=== PATIENT | female | born 1965 | race Caucasian/White ===

== ENCOUNTER 2022-03-03 11:37 | Emergency (ER) | payer BC ==
[~2022-03-03] VITALS: Ht 165.1 cm; Wt 81.6 kg
[2022-03-03 11:52] VITALS: BP_SYST 178
--- NOTE | 2022-03-03 14:22 | NUR ---
MD RADER AT BEDSIDE FOR ASSESS.
[2022-03-03] MEDS ORDERED: NACL 0.9% 1,000 ML IV ONE (15:00)
[2022-03-03] MEDS ORDERED: KETOROLAC TROMETHAMINE 30 MG VIAL IVP ONE (15:00)
--- NOTE | 2022-03-03 16:58 | NUR ---
# 16 FR In and Out catheter with use of sterile technique. Immediate return of 150ml CLEAR YELLOW urine noted. Urine sample collected and sent to lab. Pt tolerated procedure WELL Patient unable to toilet self.
[2022-03-03 17:09] LABS: BILIRUBIN,URINE NEGATIVE (NEGATIVE); BLOOD, URINE 3+ (NEGATIVE); COLOR,URINE YELLOW (YELLOW); GLUCOSE,URINE NEGATIVE (NEGATIVE); KETONES,URINE NEGATIVE (NEGATIVE); LEUKOCYTE ESTERASE ,URINE 2+ (NEGATIVE); NITRITE, URINE NEGATIVE (NEGATIVE); PH,URINE 8.5 (5.0-8.0); PROTEIN URINE 2+ (NEGATIVE); UROBILINOGEN,URINE 0.2 (0.2-1.0)
[2022-03-03 17:16] LABS: BASOPHILS % (AUTO) 0.3 % (0.0-2.0); EOSINOPHILS # (AUTO) 0.1 K/uL (0.0-0.4); EOSINOPHILS % (AUTO) 0.4 % (0.0-4.0); HEMATOCRIT 43.9 % (36-48); HEMOGLOBIN 14.5 g/dL (12.0-16.0); LYMPHOCYTES # (AUTO) 1.5 K/uL (1.0-5.5); LYMPHOCYTES % (AUTO) 10.9 % (20.5-51.5); MEAN CORPUSCULAR HEMOGLOBIN 30 pg (27-31); MEAN CORPUSCULAR HGB CONC 33 % (32-36); MEAN CORPUSCULAR VOLUME 90 fL (79.0-98.0); MONOCYTES # (AUTO) 0.7 K/uL (0.0-1.0); MONOCYTES % (AUTO) 5.2 % (1.7-9.3); NEUTROPHILS # (AUTO) 11.6 K/uL (1.8-7.7); NEUTROPHILS % (AUTO) 83.2 % (40.0-70.0); PLATELET COUNT (AUTO) 259 K/uL (130-430); RED BLOOD CELL COUNT(AUTO) 4.91 MIL/uL (4.2-6.2); RED CELL DISTRIBUTION WIDTH 12.5 % (9.0-15.0)
[2022-03-03] MEDS ORDERED: NA P133E41 RC (17:17)
[2022-03-03] MEDS ORDERED: BISA-79 PO (17:18)
[2022-03-03 17:19] LABS: CALCIUM 8.9 mg/dL (8.4-11.0); CREATININE 0.72 mg/dL (0.55-1.30); POTASSIUM 3.7 mmol/L (3.5-5.1)
[2022-03-03 17:22] LABS: CLARITY/URINE HAZY (CLEAR)
[2022-03-03 17:23] LABS: BACTERIA,URINE FEW /HPF (None Seen); WBC,URINE 20-50 /HPF (0-3)
[2022-03-03 17:24] LABS: MUCUS,URINE None Seen /LPF (None Seen)
[2022-03-03 17:25] LABS: ALBUMIN 3.2 g/dL (3.4-4.8); TOTAL BILIRUBIN 0.4 mg/dL (0.0-1.0)
[2022-03-03] MEDS ORDERED: CEPH-548 PO (17:52)
[2022-03-03] MEDS ORDERED: cefTRIAXone 1 GM VIAL ONE (17:56)
[2022-03-03] MEDS ORDERED: cefTRIAXone 1 GM IVPB PREMIX 50 ML IV ONE (18:00)
[2022-03-03 18:43] VITALS: BP_SYST 131
--- NOTE | 2022-03-03 18:43 | NUR ---
Patient given written and verbal discharge instructions and verbalizes understanding. ER MD discussed with patient the results and treatment provided. Patient in stable condition. ID arm band removed. IV catheter removed intact and dressing applied, no active bleeding. Rx of KEFLEX, BISACODYL AND FLEET ENEMA given. Patient educated on pain management and to follow up with PMD. Pain Scale 0/10. Opportunity for questions provided and answered. Medication side effect fact sheet provided. PT TO EXIT WITH IN WHEELCHAIR, BASELINE FOR PATIENT.
--- NOTE | 2022-03-21 20:13 | NUR ---
ADDENDUM: Rocephin 1 gm Ivpb Premix 50 ml 100mls/HR start time: 17:58hr end time : 18:28hr Nacl 0.9% 1000ml start time: 15:03hr end time: 16:03hr
== END 2022-03-03 18:43 | disposition home or self-care (01) ==
LOC: SED 11:37
DX: K59.00 Constipation, unspecified (principal); R10.32 Left lower quadrant pain; R10.31 Right lower quadrant pain; N39.0 Urinary tract infection, site not specified; R03.0 Elevated blood-pressure reading, without diagnosis of hypertension; Z79.899 Other long term (current) drug therapy
CPT/HCPCS: 99285; 74176; 96365; 96361; 96375; 80053; 81000; 83690; 85025; 87086; 36415; 76376; J0696; J1885; J7030